=== PATIENT | female | born 1955 | race African-American/Black ===

== ENCOUNTER 2021-04-13 06:23 | Emergency (ER) | payer BC ==
[~2021-04-13] VITALS: Ht 167.6 cm; Wt 95.3 kg
[2021-04-13] MEDS ORDERED: NOHOMEMEDICATIONS (06:55)
[2021-04-13 07:10] LABS: ABSOLUTE NEUTROPHILS 3.2 thou/uL (1.4-8.2); BASOPHILS 0.3 % (0.0-2.0); EOSINOPHILS 0.1 % (0.0-3.0); HEMATOCRIT 44.8 % (37.0-47.0); HEMOGLOBIN 14.8 gm/dL (12.0-15.0); LYMPHOCYTES 21.3 % (24.0-44.0); MCH 28.6 pg (26.0-34.0); MCHC 33.1 g/dL (28.0-37.0); MCV 86.4 fL (80.0-100.0); PLATELET COUNT 175 thou/uL (150-400); POLYS 68.3 % (36.0-66.0); RBC 5.19 mil/uL (4.20-5.00); RDW 14.1 % (10.5-14.5); WBC 4.6 thou/uL (4.0-11.0)
[2021-04-13 07:44] LABS: ANION GAP 7 mmol/L (7-16); BUN 21 mg/dL (7-18); CALCIUM 8.4 mg/dL (8.5-10.1); CHLORIDE 102 mmol/L (98-107); CO2 29 mmol/L (21-32); GLUCOSE 128 mg/dL (74-106); POTASSIUM 3.7 mmol/L (3.5-5.1); SODIUM 138 mmol/L (136-145)
[2021-04-13 07:55] LABS: LIPASE 121 U/L (73-393); SGOT 43 U/L (15-37); SGPT 42 U/L (14-59); TOTAL BILIRUBIN 0.6 mg/dL (0.2-1.0); TOTAL PROTEIN 7.2 g/dL (6.4-8.2); TROPONIN-I <0.06 ng/mL (<0.06)
[2021-04-13] MEDS ORDERED: ZPAK PO (10:14)
[2021-04-13] MEDS ORDERED: AUGMENTIN 875-1 EACH PO (10:14)
[2021-04-13] MEDS ORDERED: ZOFRAN ODT4 MG PO (10:15)
[2021-04-13 10:53] VITALS: BP 111/69
--- NOTE | 2021-04-13 14:40 | EKG ---
[place] [address] [address] [facility] [place] [address] ELECTROCARDIOGRAM REPORT Name: LEONARDO MCDANIEL Room [facility]: [facility] [id number] Admission: 04/13/21 Attend Phys: Discharge: 04/13/21 Date of : 51 Report #: [id number] [facility] ED Test Date: 2021-04-13 Test Time: 07:09:48 Pat Name: LEONARDO MCDANIEL Department: Room: Gender: F [employer] Programmer: Ron Lucas : 1955 Requested By: August Kelley Order Number: [id number] MD: Laurent Shelton Measurements Intervals [place] Rate: 89 P: 52 MT: 146 QRS: 21 QRSD: 95 T: 17 QT: 367 QTc: 447 Interpretive Statements Sinus rhythm Abnormal T, consider ischemia, anterior leads No previous ECG available for comparison Electronically Signed On 04-13-2021 14:40:33 CDT by Laurent Shelton [email or web address] <ELECTRONICALLY SIGNED> By: Laurent Shelton MD, [facility] 04/13/21 1440 [id number] Laurent Shelton MD, FAC /EPI
== END 2021-04-13 10:53 | disposition home or self-care (01) ==
LOC: ER 06:23
PROVIDERS: Emergency Medicine
DX: U07.1 COVID-19 (principal); I10 Essential (primary) hypertension